=== PATIENT | male | born 1955 | race Caucasian/White ===

== ENCOUNTER 2024-01-30 03:44 | Emergency (ER) | payer OTHER ==
[~2024-01-30] VITALS: Ht 182.9 cm; Wt 68.0 kg
[2024-01-30 04:11] VITALS: TEMP 98.6
[2024-01-30] MEDS: ipratropium/albuterol 3ml nebule NEB ONE (04:13)
[2024-01-30 04:16] VITALS: PULSE 84; RESP 16; O2SAT 95
[2024-01-30 04:19] VITALS: PULSE 88; RESP 18; O2SAT 98
[2024-01-30 04:58] LABS: BASOPHILS % (AUTO) 0.2 % (0-1); EOSINOPHILS # (AUTO) 0.2 X10'3 (0-0.9); EOSINOPHILS % (AUTO) 2.5 % (0-6); HEMATOCRIT 47.8 % (42.0-52.0); HEMOGLOBIN 15.5 g/dl (14.0-17.9); LYMPHOCYTES # (AUTO) 1.4 X10'3 (1.1-4.8); LYMPHOCYTES % (AUTO) 13.9 % (21-51); MEAN CORPUSCULAR HEMOGLOBIN 27.9 PG (27.0-31.0); MEAN CORPUSCULAR HGB CONC 32.4 g/dL (33.0-36.5); MEAN PLATELET VOLUME 9.5 FL (7.4-10.4); MONOCYTES # (AUTO) 0.8 X10'3 (0-0.9); MONOCYTES % (AUTO) 7.9 % (2-12); NEUTROPHILS # (AUTO) 7.5 X10'3 (1.8-7.7); NEUTROPHILS % (AUTO) 75.5 % (42-75); PLATELET COUNT 186 X10'3 (140-440); RED BLOOD COUNT 5.56 X10'6 (4.70-6.10); WHITE BLOOD COUNT 9.9 X10'3 (4.5-11.0)
[2024-01-30 05:15] LABS: ANION GAP 14 (8-16); BLOOD UREA NITROGEN 24 MG/DL (7-18); BUN/CREATININE RATIO 30.4 (10.0-20.0); CALCIUM 9.5 MG/DL (8.5-10.1); CHLORIDE 106 MMOL/L (99-107); CREATININE 0.79 MG/DL (0.60-1.10); ETHANOL < 10 MG/DL (<10); GLUCOSE 87 MG/DL (70-104); POTASSIUM 3.8 MMOL/L (3.5-5.1); PRO BRAIN NATRIURETIC PEPTIDE 246 PG/ML (0-125); SODIUM 145 MMOL/L (135-145); TOTAL CARBON DIOXIDE 25.2 MMOL/L (24-32); eCRCL 86 ML/MIN; eGFR > 90 ML/MIN
[2024-01-30] MEDS: normal saline 1000ml 1,000 ML IV ONE (05:24)
[2024-01-30 12:52] VITALS: BP 149/99; PULSE 88; RESP 18; O2SAT 95
== END 2024-01-30 12:55 | disposition home or self-care (01) ==
LOC: ER 03:44
DX: R07.89 Other chest pain (principal); R06.02 Shortness of breath; E78.00 Pure hypercholesterolemia, unspecified; I10 Essential (primary) hypertension; Z88.6 Allergy status to analgesic agent
CPT/HCPCS: 36415; 71045; 80048; 80320; 83735; 83880; 84484; 85025; 93005; 94640; 96360; 96361; 99285; J7030; 94760